=== PATIENT | female | born 1950 | race Caucasian/White ===

== ENCOUNTER 2019-01-16 13:03 | Outpatient (CLI) | payer MEDICARE, OTHER ==
--- NOTE | 2019-01-23 13:40 | Mammography Report ---
Reason: ANNUAL GYNECOLOGICAL EXAMINATION Procedure Date: 01/16/2019 Accession Number: [id number] / [id number] Procedure: MGN - Screening Mammo Dig Bilat CPT Code: FULL RESULT: EXAM: Screening Mammo Dig Bilat DATE: 01/16/2019 1:37 PM CLINICAL HISTORY: Routine screening. Benign left breast biopsy. TECHNIQUE: (B) - Bilateral CC and MLO views were obtained. COMPARISON: 11/23/2017, 03/30/2016, 03/04/2015, 02/20/2014. PARENCHYMAL PATTERN: (A) - The breasts demonstrate scattered fibroglandular densities bilaterally. FINDINGS: No significant interval change. There are no suspicious masses, calcifications, or areas of distortion. IMPRESSION: Negative examination. BI-RADS category 1. RECOMMENDATION: (ANNUAL) - Recommend routine annual screening mammography. BI-RADS CATEGORY: (1) - Negative. STANDARD QUALIFYING STATEMENTS: 1. This examination was not reviewed with the aid of Computer-Aided Detection (CAD). 2. A negative or benign imaging report should not preclude biopsy if clinically suspicious findings are present. 3. Dense breasts may obscure an underlying neoplasm. 4. This examination was reviewed without the aid of 3D breast imaging (tomosynthesis).
== END 2019-01-16 13:04 | disposition home or self-care (01) ==
LOC: DI.N 13:03
PROVIDERS: ATTEND Obstetrics & Gynecology
DX: Z12.31 Encounter for screening mammogram for malignant neoplasm of breast (principal)
CPT/HCPCS: 77067

== ENCOUNTER 2019-12-19 10:26 | Outpatient (CLI) | payer MEDICARE, OTHER | END 2019-12-19 10:27 | disposition short-term general hospital (02) | LOC: EMS 10:26 | PROVIDERS: ATTEND Surgery | DX: R53.1 Weakness (principal); R25.1 Tremor, unspecified | CPT/HCPCS: A0425; A0429 ==

== ENCOUNTER 2022-08-31 12:22 | Outpatient (CLI) | payer MEDICARE, OTHER ==
--- NOTE | 2022-09-01 11:31 | Mammography Report ---
BILATERAL DIGITAL SCREENING MAMMOGRAM 3D/2D: 08/31/2022 CLINICAL: Family history of breast cancer. Routine screening. Comparison is made to exams dated: 02/15/2020 mammogram, 01/16/2019 mammogram - [facility], 11/23/2017 mammogram, 03/30/2016 mammogram, 03/04/2015 mammogram, and 02/20/2014 mammogram. Both breasts are almost entirely fatty (category a/<25% glandular tissue). No significant masses, calcifications, or other findings are seen in either breast. There has been no significant interval change. IMPRESSION: NEGATIVE There is no mammographic evidence of malignancy. A 1 year screening mammogram is recommended. Based on the Tyrer Cuzick model (a risk assessment model) the patients lifetime risk is 5.3% and her 10 year risk is 3.6%. According to the ACR, ACS, and NCCN guidelines, an annual breast MRI exam minda g with mammogram is recommended if the patients lifetime risk is 20% or greater. This exam was interpreted at Station ID: [id number]. NOTE: For mammograms, a report in lay terms will be sent to the patient. Approximately 15% of breast malignancies will not be visualized mammographically. In the management of a palpable breast mass, a negative mammogram must not discourage biopsy of a clinically suspicious lesion. Electronically Signed By: Page [email or web address]/[email or web address]:08/31/2022 17:58:18 ACR BI-RADS Category 1: Negative 3341F PARENCHYMAL PATTERN: (F) - The breast(s) demonstrate(s) diffuse fatty replacement. BI-RADS CATEGORY: (1) - 1 RECOMMENDATION: (ANNUAL) - Recommend routine annual screening mammography. [id number] 1 year screening LATERALITY: (B)
== END 2022-08-31 12:23 | disposition home or self-care (01) ==
LOC: DI.N 12:22
PROVIDERS: ATTEND Nurse Practitioner
DX: Z12.31 Encounter for screening mammogram for malignant neoplasm of breast (principal); Z80.3 Family history of malignant neoplasm of breast

== ENCOUNTER 2022-12-29 09:58 | Outpatient (CLI) | payer MEDICARE, OTHER ==
--- NOTE | 2022-12-29 10:48 | DEXA Report ---
PROCEDURE: Dexa Spine and/or Hip INDICATIONS: POST MENOPAUSAL TECHNIQUE: Dual energy x-ray absorptiometry (DXA) was performed on a Shippo System. Regions measur ed are the AP Spine, femoral neck, and if needed forearm. COMPARISON: None. FINDINGS: Lumbar Spine: Postsurgical changes are seen from prior lumbar spinal fusion hardware likely extending from L3 throu gh L5. Bone Mineral Density of T12-L2 is 1.022 g/cm/cm,T score -1.2. Left Femoral Neck: Bone Mineral Density 0.827 g/cm/cm, T score -1.5. Left Hip: Bone Mineral Density 0.920 g/cm/cm,T score -0.7. (T score greater or equal to -1.0: NORMAL) (T score from -1.1 to -2.4: OSTEOPENIA) (T score less than or equal to -2.5 to: OSTEOPOROSIS) Impression: By WHO criteria, this patient has low bone density (osteopenia). Patients with diagnosis of osteoporosis or osteopenia should have regular bone mineral density assess ment. For those eligible for Medicare, routine testing is allowed once every 2 years. Testing frequ ency can be increased for patients who have rapidly progressing disease or for those who are receivin g medical therapy to restore bone mass. Reviewed by: Kit Arboleda MD on 12/29/2022 10:47 AM PDT Approved by: Kit Arboleda MD on 12/29/2022 10:47 AM PDT Station ID: [id number]
== END 2022-12-29 09:59 | disposition home or self-care (01) ==
LOC: DI 09:58
PROVIDERS: ATTEND Internal Medicine
DX: N95.8 Other specified menopausal and perimenopausal disorders (principal); M85.80 Other specified disorders of bone density and structure, unspecified site

== ENCOUNTER 2024-01-12 13:00 | Outpatient (CLI) | payer MEDICARE, OTHER ==
[2024-01-12 13:17] LABS: BASOPHILS # (AUTO) 0.1 10^3/uL (0.0-0.1); BASOPHILS % (AUTO) 0.8 %; EOSINOPHILS # (AUTO) 0.1 10^3/uL (0.0-0.7); EOSINOPHILS % (AUTO) 1.1 %; HCT - HEMATOCRIT 38.5 % (37.0-47.0); HGB - HEMOGLOBIN 12.2 g/dL (12.0-16.0); LYMPHOCYTES # (AUTO) 1.5 10^3/uL (1.5-3.5); LYMPHOCYTES % (AUTO) 17.2 %; MEAN CORPUSCULAR HGB CONC 31.7 g/dL (32.0-36.0); MEAN CORPUSCULAR VOLUME 88.3 fL (81.0-99.0); MEAN PLATELET VOLUME 10.4 fL (7.9-10.8); MONOCYTES # (AUTO) 0.6 10^3/uL (0.0-1.0); MONOCYTES % (AUTO) 6.6 %; NEUTROPHILS # (AUTO) 6.5 10^3/uL (1.5-6.6); NEUTROPHILS % (AUTO) 73.6 %; PLT - PLATELET COUNT 257 10^3/uL (130-450); RED BLOOD COUNT 4.36 10^6/uL (4.20-5.40); RED CELL DISTRIBUTION WIDTH 14.1 % (12.0-15.0); WHITE BLOOD COUNT 8.8 x10^3/uL (4.8-10.8)
[2024-01-12 13:32] LABS: ALBUMIN 4.1 g/dL (3.2-5.5); ALBUMIN/GLOBULIN RATIO 1.5 (1.0-2.2); ALKALINE PHOSPHATASE 97 IU/L (42-121); ALT ALANINE AMINOTRANSFERASE 16 IU/L (10-60); AST ASPARTATE AMINOTRANSFERASE 21 IU/L (10-42); BILIRUBIN,TOTAL 0.3 mg/dL (0.2-1.0); BUN - BLOOD UREA NITROGEN 21 mg/dL (6-20); CALCIUM 9.4 mg/dL (8.5-10.3); CARBON DIOXIDE - CO2 27 mmol/L (21-32); CHLORIDE 104 mmol/L (101-111); CHOL/HDL RATIO 3.6 (<4.4); CHOLESTEROL 267 mg/dL; CREATININE 0.6 mg/dL (0.6-1.3); GFR - MDRD 98 (>89); GLUCOSE 106 mg/dL (74-104); HDL CHOLESTEROL 75 mg/dL; LDL CHOLESTEROL,CALCULATED 162 mg/dL; LDL/HDL RATIO 2.2 (<4.4); POTASSIUM 4.2 mmol/L (3.5-4.5); SODIUM 137 mmol/L (135-145); TOTAL PROTEIN 6.8 g/dL (6.4-8.9); TRIGLYCERIDES 152 mg/dL (48-352); VLDL CHOLESTEROL 30 mg/dL
== END 2024-01-12 13:01 | disposition home or self-care (01) ==
LOC: LAB 13:00
PROVIDERS: ATTEND Family Medicine
DX: I25.10 Atherosclerotic heart disease of native coronary artery without angina pectoris (principal); E03.9 Hypothyroidism, unspecified; J45.909 Unspecified asthma, uncomplicated; F41.9 Anxiety disorder, unspecified; M79.7 Fibromyalgia
CPT/HCPCS: 36415; 80053; 80061; 83721; 84439; 84443; 84481; 85025

== ENCOUNTER 2025-03-24 10:57 | Observation (INO) ==
--- NOTE | 2025-03-24 11:14 | ED Physician Documentation ---
History of Present Illness Stated complaint Stated Complaint: SOA, CAN'T STAND, TIGHT STOMACH Chief complaint Chief Complaint: Neuro Meds/Allgy Home Medications Ambulatory Orders Medication Instructions Recorded Confirmed aspirin 81 mg tablet,delayed 81 mg PO QDAY 05/01/24 release (Adult Low Dose Aspirin) celecoxib 200 mg capsule mg PO BID 05/01/24 03/13/25 cetirizine 10 mg tablet (Zyrtec) 10 mg PO QDAY PRN 03/1703/13/25 albuterol sulfate 90 mcg/actuation 2 puff inhalation Q 6H PRN 05/21/24 03/13/25 aerosol inhaler (Proventil HFA) shortness of breath or wheezing #8.5 grams zaleplon 10 mg capsule 10 mg PO ONCE PRN sleep #90 caps 05/21/24 03/13/25 fluticasone propionate 220 See Rx Instructions .Route 07/31/24 03/13/25 mcg/actuation HFA aerosol inhaler .COMPLEX #36 grams rabeprazole 20 mg tablet,delayed 20 mg PO BID #180 tab s 09/02/24 03/13/25 release sulfamethoxazole 800 0.5 tab PO QDAY #90 tabs 03/13/25 mg-trimethoprim 160 mg tablet cranberry 500 mg capsule 500 mg PO .Daily I have refl ux 09/27/24 03/13/25 lysine 1,000 mg tablet 1,000 mg PO .Daily Mouth Sor es 09/27/24 03/13/25 levothyroxine 75 mcg tablet 75 mcg PO QDAY #90 tabs 03/13/25 liothyronine 5 mcg tablet 10 mcg (2 x 5 mcg) PO QDAY # 180 11/02/24 03/13/25 tabs estradiol 0.01% (0.1 mg/gram) See Rx Instructions .Rou te 01/15/25 03/13/25 vaginal cream .COMPLEX #42.5 grams pregabalin 50 mg capsule 150 mg (3 x 50 mg) PO QDAY # 270 01/19/25 03/13/25 caps midodrine 10 mg tablet 10 mg PO .qdaily #30 tabs 03/13/25 sertraline 50 mg tablet 150 mg (3 x 50 mg) PO QDAY # 270 03/16/25 tabs Allergies Allergies Allergy/AdvReac Type Severity Reaction Status Date / Time epinephrine Allergy Severe Respiratory Verified 01/08/25 15:30 nitrofurantoin (From Allergy Severe Respiratory Verified 01/08/25 15:30 Macrodantin) povidone-iodine (From Allergy Severe Rash Verified 01/08/25 15:30 Betadine) latex AdvReac Severe Rash Verified 01/08/25 15:30 Scales powder, Fennel, Allergy Severe Respiratory Uncoded 01/08/25 15:30 chamomile PFSH Active Problems All Active Problems (Updated 03/13/25 @ 17:05 by Cuate Ferrari MD) Hypotension, unspecified (Acute) GERD (gastroesophageal reflux disease) (Acute 01/09/19) Atherosclerosis of coronary artery of [place] heart (Acute 03/22/23) Abnormal Pap smear of cervix (Acute 01/09/19) Seizure disorder (Acute 01/09/19) Osteoarthritis (Acute 01/09/19) Neurologic disorder (Acute 01/09/19) Mechanical low back pain (Acute 03/22/23) Kidney disease (Acute 01/09/19) Hypothyroidism (Acute 01/09/19) Hearing loss, bilateral (Acute 03/22/23) Fibromyalgia (Acute 01/09/19) Fatigue (Acute 08/23/23) Depression (Acute 03/22/23) Asthma (Acute 01/09/19) Anxiety (Acute 01/09/19) Anemia (Acute 01/09/19) Allergic rhinitis (Acute 03/22/23) Medical History Medical History (Updated 03/13/25 @ 17:05 by Cuate Ferrari MD) Urinary tract infection, recurrent (03/22/23) Myocardial infarction (01/09/19) Family History Family History (Updated 10/03/24 @ 11:28 by Regla Jefferson LPN) Daughter Muscular dystrophy Rhabdomyosarcoma Endometriosis Ovarian cyst Fibroids Mother Breast cancer Cancer Arthritis Heart attack Colitis Degenerative joint disease Blood disease Sister Cancer Son Epilepsy Maternal grandfather Arthritis Maternal grandmother Arthritis Paternal grandfather Arthritis Paternal grandmother Arthritis Father Arthritis Heart attack Mental disorder Social History Social History Second hand tobacco smoke exposure: Yes Do you dip or chew tobacco?: No Do you vape?: No Patient requests smoking cessation consult: No Initiate information on smoking cessation: No Living arrangement: At home Marital Status: Living Condition: With spouse/s.o. 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 Service: No Are you following a diet prescribed by a doctor: No Are you following a special diet: Yes Special Diet Details: Low cholesterol POLST Patient has POLST: No Exam Exam Vital Signs: Vital Signs x48h Temp Pulse Resp BP Pulse Ox 03/24/25 11:05 36.3 C L 76 28 H 134/101 H 90 L Results Vitals Vitals: Vital Signs - 24 hr 03/24/25 11:05 Temperature 36.3 C L Temperature Source Temporal Artery Scan Pulse Rate 76 Respiratory Rate 28 H Blood Pressure 134/101 H O2 Saturation 90 L O2 Source Room air Pain Intensity 0 Oxygen O2 Source Room air Discharge Plan Discharge Prescriptions: No Action zaleplon 10 mg capsule 10 mg PO ONCE PRN (Reason: sleep) Qty: 90 0RF albuterol sulfate [Proventil HFA] 90 mcg/actuation HFA aerosol inhaler 2 puff inhalation Q6H PRN (Reason: shortness of breath or wheezing) Qty: 8.5 2RF fluticasone propionate 220 mcg/actuation HFA aerosol inhaler See Rx Instructions .ROUTE .COMPLEX Qty: 36 3RF Dose Instruction: USE 2 INHALATIONS TWICE A DAY Rx Instructions: USE 2 INHALATIONS TWICE A DAY rabeprazole 20 mg tablet,delayed release (DR/EC) 20 mg PO BID Qty: 180 3RF sulfamethoxazole-trimethoprim 800-160 mg tablet 0.5 tab PO QDAY Qty: 90 1RF liothyronine 5 mcg tablet 10 mcg PO QDAY Qty: 180 3RF estradiol 0.01 % (0.1 mg/gram) cream See Rx Instructions .ROUTE .COMPLEX Qty: 42.5 2RF Rx Instructions: apply small amount around urethra; three days a week pregabalin 50 mg capsule 150 mg PO QDAY Qty: 270 1RF sertraline 50 mg tablet 150 mg PO QDAY Qty: 270 3RF celecoxib 200 mg capsule PO BID aspirin [Adult Low Dose Aspirin] 81 mg tablet,delayed release (DR/EC) 81 mg PO QDAY cetirizine [Zyrtec] 10 mg tablet 10 mg PO QDAY PRN cranberry 500 mg capsule 500 mg PO .Daily lysine 1,000 mg tablet 1,000 mg PO .Daily levothyroxine 75 mcg tablet 75 mcg PO QDAY Qty: 90 3RF midodrine 10 mg tablet 10 mg PO .qdaily Qty: 30 3RF Rx Instructions: do not give last dose of day after 6PM or within 4 hrs of bedtime Print Language: Polish Stand Alone Forms: PCP List
--- NOTE | 2025-03-24 11:29 | ED Physician Documentation ---
History of Present Illness Stated complaint Stated Complaint: SOA, CAN'T STAND, TIGHT STOMACH Chief complaint Chief Complaint: Neuro History obtained from History obtained from: Patient History of Present Illness Timing: Prior to arrival Additonal information Additional information: Patient is a 74-year-old female presenting to the emergency department with concerns for feeling significantly fatigued and weak she felt so weak she could not get out of the car while going into [facility] this morning. Her physician conveniently works at the [facility] and evaluated patient and sent her to the ER as her heart rate was elevated. On arrival patient has diffuse movements of upper and lower extremities that could be described as twitching. 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 She is not on any medications for them. She describes feeling short of breath as well. No chest pain no incontinence no tongue biting no loss of consciousness describes patient being more fatigued this morning but did eat half an Armenian muffin and was able to get into the car to go to [facility]. Patient open noted on arrival at [facility] she just felt like she could not get up and go into the [facility]. She notes she drinks about 1 -2 glasses of wine. Meds/Allgy Home Medications Ambulatory Orders Medication Instructions Recorded Confirmed aspirin 81 mg tablet,delayed 81 mg PO QDAY 05/01/24 release (Adult Low Dose Aspirin) celecoxib 200 mg capsule mg PO BID 05/01/24 03/13/25 cetirizine 10 mg tablet (Zyrtec) 10 mg PO QDAY PRN 03/1703/13/25 albuterol sulfate 90 mcg/actuation 2 puff inhalation Q 6H PRN 05/21/24 03/13/25 aerosol inhaler (Proventil HFA) shortness of breath or wheezing #8.5 grams zaleplon 10 mg capsule 10 mg PO ONCE PRN sleep #90 caps 05/21/24 03/13/25 fluticasone propionate 220 See Rx Instructions .Route 07/31/24 03/13/25 mcg/actuation HFA aerosol inhaler .COMPLEX #36 grams rabeprazole 20 mg tablet,delayed 20 mg PO BID #180 tab s 09/02/24 03/13/25 release sulfamethoxazole 800 0.5 tab PO QDAY #90 tabs 03/13/25 mg-trimethoprim 160 mg tablet cranberry 500 mg capsule 500 mg PO .Daily I have refl ux 09/27/24 03/13/25 lysine 1,000 mg tablet 1,000 mg PO .Daily Mouth Sor es 09/27/24 03/13/25 levothyroxine 75 mcg tablet 75 mcg PO QDAY #90 tabs 03/13/25 liothyronine 5 mcg tablet 10 mcg (2 x 5 mcg) PO QDAY # 180 11/02/24 03/13/25 tabs estradiol 0.01% (0.1 mg/gram) See Rx Instructions .Rou te 01/15/25 03/13/25 vaginal cream .COMPLEX #42.5 grams pregabalin 50 mg capsule 150 mg (3 x 50 mg) PO QDAY # 270 01/19/25 03/13/25 caps midodrine 10 mg tablet 10 mg PO .qdaily #30 tabs 03/13/25 sertraline 50 mg tablet 150 mg (3 x 50 mg) PO QDAY # 270 03/16/25 tabs Allergies Allergies Allergy/AdvReac Type Severity Reaction Status Date / Time epinephrine Allergy Severe Respiratory Verified 03/24/25 11:20 nitrofurantoin (From Allergy Severe Respiratory Verified 03/24/25 11:20 Macrodantin) povidone-iodine (From Allergy Severe Rash Verified 03/24/25 11:20 Betadine) latex AdvReac Severe Rash Verified 03/24/25 11:20 Scales powder, Fennel, Allergy Severe Respiratory Uncoded 03/24/25 11:20 chamomile [facility] Active Problems All Active Problems (Updated 03/24/25 @ 21:32 by Geneva Morelos PA-C) Unable to ambulate (Acute) Foot spasms (Acute) Do not resuscitate (Acute) Lactic acidosis (Acute) Involuntary movements (Acute) Hypotension, unspecified (Acute) GERD (gastroesophageal reflux disease) (Acute 01/09/19) Atherosclerosis of coronary artery of [place] heart (Acute 03/22/23) Abnormal Pap smear of cervix (Acute 01/09/19) Seizure disorder (Acute 01/09/19) Osteoarthritis (Acute 01/09/19) Neurologic disorder (Acute 01/09/19) Mechanical low back pain (Acute 03/22/23) Kidney disease (Acute 01/09/19) Hypothyroidism (Acute 01/09/19) Hearing loss, bilateral (Acute 03/22/23) Fibromyalgia (Acute 01/09/19) Fatigue (Acute 08/23/23) Depression (Acute 03/22/23) Asthma (Acute 01/09/19) Anxiety (Acute 01/09/19) Anemia (Acute 01/09/19) Allergic rhinitis (Acute 03/22/23) Medical History Medical History (Updated 03/24/25 @ 21:32 by Geneva Morelos PA-C) Glomerulonephritis in the past due to reflux into right kidney from bladder Weakness of left lower extremity chronic from spine problems Polyneuropathy with hyperreflexia Congenital pes planus With gastrocnemius recession to transfer and lengthen Achilles tendon and form foot arch 1959, 1960. Then had transfer of big toe tendon to replace torn Achilles left foot 2007 Urinary tract infection, recurrent (03/22/23) on daily bactrim for this Myocardial infarction (01/09/19) Surgical History Surgical History (Updated 03/24/25 @ 17:43 by Emma Riddle MD) Status post right knee replacement Partial with Repicci prosthesis 08/2020 H/O breast biopsy 1979 H/O tubal ligation February 1978 S/P tonsillectomy 1954 H/O lysis of adhesions adhesions L bowel, colon rigid and treacherous H/O cervical spine surgery C2-3, November 2021 Family History Family History (Updated 10/03/24 @ 11:28 by Regla Jefferson LPN) Daughter Muscular dystrophy Rhabdomyosarcoma Endometriosis Ovarian cyst Fibroids Mother Breast cancer Cancer Arthritis Heart attack Colitis Degenerative joint disease Blood disease Sister Cancer Son Epilepsy Maternal grandfather Arthritis Maternal grandmother Arthritis Paternal grandfather Arthritis Paternal grandmother Arthritis Father Arthritis Heart attack Mental disorder Social History Social History (Updated 03/24/25 @ 17:50 by Emma Riddle MD) Smoking Status: Never smoker Second hand tobacco smoke exposure: Yes Do you dip or chew tobacco?: No Do you vape?: No Patient requests smoking cessation consult: No Initiate information on smoking cessation: No Living arrangement: At home Marital Status: Living Condition: With spouse/s.o. Support Person: Yes Relationship Notes: 50 years. From [place]. [place] and lived all over. [facility] since 2017. Living Situation Details: Live in their own home. Has a Durable Power of Air Technician for Health Care?: No DPOA on file?: No Has Health Care Directive?: No Physical Activity: Walking and Swimming Level: Assisted Home Mobility Equipment: Cane Physical - Functional Details: Still drives during the day. Uses a walker when the left leg is particularly weak. 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 Service: No Are you following a diet prescribed by a doctor: No Are you following a special diet: Yes Special Diet Details: Low cholesterol POLST Patient has POLST: No Exam Exam Vital Signs: Vital Signs x48h Pulse Resp BP Pulse Ox 03/24/25 15:52 62 18 162/53 H 98 03/24/25 15:07 63 18 163/82 H 95 03/24/25 15:07 66 18 163/82 H 98 03/24/25 14:52 65 18 173/46 H 94 03/24/25 14:37 60 18 173/85 H 93 03/24/25 14:22 62 18 179/70 H 99 03/24/25 14:22 61 18 179/70 H 99 03/24/25 14:07 63 18 169/83 H 96 03/24/25 13:52 63 18 185/62 H 100 03/24/25 13:37 66 18 176/73 H 100 03/24/25 13:37 67 18 176/73 H 99 03/24/25 13:30 68 18 113/90 93 Constitutional Patient does not appear in any significant distress she is answering questions ANO x 3 no acute distress but does have diffuse spasms to upper and lower extremities with a distal in the hands and feet. Does not appear to be chorea or tremors. Patient is alert but keeps her eyes closed on initial examination. HENMT normocephalic and head/scalp atraumatic Eyes PERRL, EOMs intact bilaterally and conjunctivae normal Neck/C-Spine visual inspection normal Lymph no lymphadenopathy noted Chest inspection of chest normal and palpation of chest normal Respiratory breath sounds equal bilaterally, normal respiratory effort and clear to auscultation bilaterally Cardiovascular normal heart rate noted, regular rhythm noted, no gallop and no rub Genitourinary no CVA tenderness Results Vitals Vitals: Vital Signs - 24 hr 03/24/25 11:05 03/24/25 11:19 03/24/25 11:31 Temperature 36.3 C L Temperature Source Temporal Artery Scan Pulse Rate 76 69 Respiratory Rate 28 H 21 Blood Pressure 134/101 H 156/102 H O2 Saturation 90 L 100 O2 Source Room air Room air Pain Intensity 0 0 03/24/25 11:31 03/24/25 11:47 03/24/25 12:18 Temperature Temperature Source Pulse Rate 70 68 63 Respiratory Rate 18 18 13 Blood Pressure 156/102 H 152/90 H 157/89 H O2 Saturation 99 98 99 O2 Source Room air Room air Pain Intensity 03/24/25 12:18 03/24/25 12:18 03/24/25 12:31 Temperature Temperature Source Pulse Rate 66 66 68 Respiratory Rate 18 18 22 Blood Pressure 157/89 H 157/89 H 183/76 H O2 Saturation 100 97 92 O2 Source Pain Intensity 03/24/25 12:47 03/24/25 12:47 03/24/25 12:47 Temperature Temperature Source Pulse Rate 64 64 66 Respiratory Rate 16 18 18 Blood Pressure 168/88 H 168/88 H 168/88 H O2 Saturation 100 99 93 O2 Source Pain Intensity 03/24/25 13:02 03/24/25 13:11 03/24/25 13:17 Temperature Temperature Source Pulse Rate 65 62 62 Respiratory Rate 18 20 18 Blood Pressure 175/69 H 171/68 H O2 Saturation 97 95 99 O2 Source Pain Intensity 03/24/25 13:17 03/24/25 13:30 03/24/25 13:37 Temperature Temperature Source Pulse Rate 68 68 67 Respiratory Rate 18 18 18 Blood Pressure 171/68 H 113/90 176/73 H O2 Saturation 93 93 99 O2 Source Pain Intensity 03/24/25 13:37 03/24/25 13:52 03/24/25 14:07 Temperature Temperature Source Pulse Rate 66 63 63 Respiratory Rate 18 18 18 Blood Pressure 176/73 H 185/62 H 169/83 H O2 Saturation 100 100 96 O2 Source Pain Intensity 03/24/25 14:22 03/24/25 14:22 03/24/25 14:37 Temperature Temperature Source Pulse Rate 61 62 60 Respiratory Rate 18 18 18 Blood Pressure 179/70 H 179/70 H 173/85 H O2 Saturation 99 99 93 O2 Source Pain Intensity 03/24/25 14:52 03/24/25 15:07 03/24/25 15:07 Temperature Temperature Source Pulse Rate 65 66 63 Respiratory Rate 18 18 18 Blood Pressure 173/46 H 163/82 H 163/82 H O2 Saturation 94 98 95 O2 Source Pain Intensity 03/24/25 15:52 Temperature Temperature Source Pulse Rate 62 Respiratory Rate 18 Blood Pressure 162/53 H O2 Saturation 98 O2 Source Pain Intensity Oxygen O2 Source Room air Labs Labs: Laboratory Tests 03/24/25 03/24/25 03/24/25 11:30 11:41 12:18 WBC 9.1 RBC 4.47 Hgb 12.0 Hct 37.8 MCV 84.6 MCH 26.8 L MCHC 31.7 L RDW 14.6 Plt Count 259 MPV 10.9 H Neut # (Auto) 7.1 H Lymph # (Auto) 1.2 L Clark # (Auto) 0.6 Eos # (Auto) 0.0 Baso # (Auto) 0.1 Absolute Nucleated RBC 0.00 Nucleated RBC % 0.0 Sodium 137 Potassium 3.7 Chloride 105 Carbon Dioxide 21 Anion Gap 11.0 BUN 16 Creatinine 0.6 Estimated GFR (MDRD) 98 Glucose 118 H Lactic Acid 3.5 H* Calcium 9.2 Magnesium 1.8 Total Bilirubin 0.4 AST 17 ALT 13 Alkaline Phosphatase 80 Total Creatine Kinase 64 Troponin I High Sens 3.6 B-Natriuretic Peptide 16 Total Protein 7.2 Albumin 4.4 Globulin 2.8 Albumin/Globulin Ratio 1.6 Urine Color YELLOW Urine Clarity HAZY Urine pH 8.0 H Ur Specific [place] 1.010 Urine Protein NEGATIVE Urine Glucose (UA) NEGATIVE Urine Ketones NEGATIVE Urine Occult Blood MODERATE H Urine Nitrite NEGATIVE Urine Bilirubin NEGATIVE Urine Urobilinogen 0.2 (NORMAL) Ur Leukocyte Esterase NEGATIVE Urine RBC 0-5 Urine WBC 0-3 Ur Squamous Epith Cells MOD Squamous H Amorphous Sediment Marked Urine Bacteria Many H Ur Microscopic Review INDICATED Urine Culture Comments NOT INDICATED Nasal Adenovirus (PCR) NOT DETECTED Nasal B. parapertussis DNA (PCR) NOT DETECTED Nasal Coronavir 229E PCR NOT DETECTED Nasal Coronavir HKU1 PCR NOT DETECTED Nasal Coronavir NL63 PCR NOT DETECTED Nasal Coronavir OC43 PCR NOT DETECTED Nasal Enterovir/Rhinovir PCR NOT DETECTED Nasal Influenza B PCR NOT DETECTED Nasal Influenza A PCR NOT DETECTED Nasal Parainfluen 1 PCR NOT DETECTED Nasal Parainfluen 2 PCR NOT DETECTED Nasal Parainfluen 3 PCR NOT DETECTED Nasal Parainfluen 4 PCR NOT DETECTED Nasal RSV (PCR) NOT DETECTED Nasal B.pertussis DNA PCR NOT DETECTED Nasal C.pneumoniae (PCR) NOT DETECTED Hugh Human Metapneumo PCR NOT DETECTED Nasal M.pneumoniae (PCR) NOT DETECTED Nasal SARS-CoV-2 (PCR) NOT DETECTED Urine Opiates Screen NEGATIVE Ur Buprenorphine Scrn NEGATIVE Ur Oxycodone Screen NEGATIVE Urine Methadone Screen NEGATIVE Urine Fentanyl Screen Negative Ur Barbiturates Screen NEGATIVE Ur Tricyclics Screen NEGATIVE Ur Phencyclidine Scrn NEGATIVE Ur Amphetamine Screen NEGATIVE U Methamphetamines Scrn NEGATIVE U Benzodiazepines Scrn POSITIVE H Urine Cocaine Screen NEGATIVE U Cannabinoids Screen NEGATIVE Ur Drug Screen Comment CUTOFF CONC BELOW: Ethyl Alcohol < 10.0 PD Medical Decision Making ED course Complexity details: reviewed old records and reviewed results ED course: Patient is a 74-year-old female presenting to the emergency department with diffuse spasming mainly in upper and lower extremities she was about to going to [facility] when she was unable to get out of the car due to difficulty walking. She notes that she never had the symptoms before but reports a history of grand mal seizures in the past. She denies any tongue biting incontinence or seizure-like activity this was confirmed by her . He notes she is a little bit sore this morning but had no symptoms similar. Patient did report taking her morning medications including aspirin. She had no fevers no nausea no vomiting. Labs here in the ED are reassuring she is no findings of leukocytosis CMP is unremarkable UA is negative EKG has some motion artifact but is showing normal sinus rhythm lipase well within normal limits she has a slight elevation in her lactic acid but she is started on IV fluids for this here in the ED could be secondary to diffuse spasms. CT head shows no acute intracranial findings at this time.Respiratory swab is negative UA positive for benzos and alcohol level is negative CT angio head and neck ordered with code stroke as patient Began to develop significant difficulty speaking with mumbling and having persistent shaking to her feet. 1347: Reviewed case with on-call teleneurologist Dr. Menendze who notes it is difficult to determine last known well time from patient as has been reported her symptoms have been going on since she has been here in the ED but this was not appreciated on my physical exam during her initial arrival additionally patient has had inconsistent findings on her physical exam and the fact she could not transfer herself from wheelchair to bed when she first came in but per my tech she was able to transfer herself from wheelchair to toilet and back without difficulty ( able to bear weight) by herself. 1500: Reviwed reassuring work up [facility] Dr. De Paz notes MRI outpatient can be ordered but patient is having difficulty walking. I have a patient she continues to have spasms she feels too weak to go home and cannot ambulate side. does not feel safe to bring patient home and patient would like to stay here in I reviewed case with hospitalist and she is agreeable with admission with Dr. Riddle Discharge Plan Discharge Patient Disposition: 67 [facility] DC/Xfer Condition: Good Clinical Impression: Foot spasms, Unable to ambulate Interventions: ED Admission Assessment Last Done: 03/24/25 16:48 Vitals documented within 30 minutes of discharge?: Yes
--- OUTSIDE RECORDS SUMMARY | 2025-03-24 11:31 | EXTERNAL MEDICAL SUMMARY RPT | Continuity of Care Document ---
Author Organization [facility] Address [address] [place] [id number] Phone Problems date description facility 2025-01-08 14:51 Dysuria [facility] 2025-01-08 14:52 Dysuria [facility] 2025-01-08 15:24 Dysuria [facility] 2025-01-08 15:30 Dysuria [facility] 2025-01-08 15:33 Dysuria [facility] 2025-01-08 16:15 Dysuria [facility] 2025-01-08 19:13 Dysuria [facility] 2025-01-09 08:14 Dysuria [facility] 2025-03-14 00:01 Anemia, unspecified [facility] 2025-03-14 00:01 Hypothyroidism, unspecified [facility] 2025-03-14 00:01 Depression, unspecified [facility] 2025-03-14 00:01 Hypotension, unspecified [facility] 2025-03-14 00:01 Unspecified asthma, uncomplicat ed [facility] [employer] 2025-03-14 00:01 Gastro-esophageal reflux diseas e without esophagitis [facility] [employer] 2025-03-14 00:01 Unspecified osteoarthritis, uns pecified site [facility] 2025-03-14 00:01 Disorder of kidney and ureter, unspecified [facility] 2025-03-14 00:01 Other fatigue [employer] Results/Labs test date facility value unit notes Result panel 1 CUL, URINE 2025-01-08 15:30 [facility] CXPCULTUR E IN PROGRESS. RESULTS TO FOLLOW. (missing) (missing) CUL, URINE 2025-01-08 15:30 [facility] NGNo growth (miss ing) (missing) Social History date description facility
--- NOTE | 2025-03-24 11:44 | XRAY Report ---
PROCEDURE: XR Chest 1V INDICATIONS: sob TECHNIQUE: One view of the chest was acquired. COMPARISON: 12/03/2022. FINDINGS: Surgical changes and devices: None. Lungs and pleura: No pleural effusions or pneumothorax. No consolidation. Mediastinum: Mediastinal contours appear normal. Heart size is normal. Bones and chest wall: No suspicious bony lesions. Overlying soft tissues appear unremarkable. IMPRESSION: No acute cardiopulmonary process. Reviewed by: Suzette Alvarado MD on 03/24/2025 10:43 AM JOANN Approved by: Suzette Alvarado MD on 03/24/2025 10:43 AM JOANN Station ID: [id number]
[2025-03-24 11:45] LABS: HCT - HEMATOCRIT 37.8 % (37.0-47.0); HGB - HEMOGLOBIN 12.0 g/dL (12.0-16.0); MEAN PLATELET VOLUME 10.9 fL (7.9-10.8); NRBC ABSOLUTE COUNT (AUTO) 0.00 x10^3/uL; NUCLEATED RED BLOOD CELLS AUTO 0.0 /100WBC; PLT - PLATELET COUNT 259 10^3/uL (130-450); RED CELL DISTRIBUTION WIDTH 14.6 % (12.0-15.0)
[2025-03-24 12:01] LABS: ALT ALANINE AMINOTRANSFERASE 13 IU/L (10-60); AST ASPARTATE AMINOTRANSFERASE 17 IU/L (10-42); BUN - BLOOD UREA NITROGEN 16 mg/dL (6-20); CARBON DIOXIDE - CO2 21 mmol/L (21-32); CREATININE 0.6 mg/dL (0.6-1.3); ETOH - ETHANOL < 10.0 mg/dL; GFR - MDRD 98 (>89)
[2025-03-24] MEDS: SODIUM CHLORIDE 0.9% 1,000 ML IV STA (12:21)
[2025-03-24 12:35] LABS: OCCULT BLOOD,URINE MODERATE (NEGATIVE)
[2025-03-24 12:36] LABS: GLUCOSE, URINE (UA) NEGATIVE (NEGATIVE); KETONES,URINE (UA) NEGATIVE (NEGATIVE)
[2025-03-24 12:40] LABS: AMORPHOUS SEDIMENT,UR Marked /LPF; AMPHETAMINE SCREEN,URINE NEGATIVE (NEGATIVE); BARBITURATE SCREEN,UR NEGATIVE (NEGATIVE); BUPRENORPHINE SCREEN, URINE NEGATIVE (NEGATIVE); COCAINE SCREEN URINE NEGATIVE (NEGATIVE); METHADONE SCREEN, URINE NEGATIVE (NEGATIVE); METHAMPHETAMINES SCREEN, URINE NEGATIVE (NEGATIVE); OPIATE SCREEN, URINE NEGATIVE (NEGATIVE); SQUAMOUS EPITHELIAL CELL,UR MOD Squamous (<= Few); THC CANNABINOID SCREEN, URINE NEGATIVE (NEGATIVE)
[2025-03-24 12:41] LABS: BENZODIAZEPINES SCREEN, URINE POSITIVE (NEGATIVE)
[2025-03-24 12:43] LABS: B. PARAPERTUSSIS- RESP PCR PAN NOT DETECTED; B. PERTUSSIS- RESP PCR PANEL NOT DETECTED; C. PNEUMONIAE- RESP PCR PANEL NOT DETECTED; CORONAVIRUS 229E-RESP PCR NOT DETECTED; CORONAVIRUS HKU1-RESP PCR NOT DETECTED; CORONAVIRUS NL63-RESP PCR NOT DETECTED; CORONAVIRUS OC43-RESP PCR NOT DETECTED; HUMAN METAPNEUMOVIRUS NOT DETECTED; INFLUENZA A- RESP PCR PANEL NOT DETECTED; INFLUENZA B - RESP PCR PANEL NOT DETECTED; M. PNEUMONIAE- RESP PCR PANEL NOT DETECTED; PARAINFLUENZA VIRUS 1 NOT DETECTED; PARAINFLUENZA VIRUS 2 NOT DETECTED; PARAINFLUENZA VIRUS 4 NOT DETECTED; RHINOVIRUS/ENTEROVIRUS NOT DETECTED; RSV- RESP PCR PANEL NOT DETECTED; SARS-CoV-2 -RESP PCR PANEL NOT DETECTED
--- NOTE | 2025-03-24 12:49 | CT Report ---
PROCEDURE: CT Head WO INDICATIONS: tremors, fatigue, ams TECHNIQUE: CT of the head was performed, without intravenous contrast. Reformats: Coronal and sagittal. For radiation dose reduction, the following was used: automated exposure control, adjustment of mA and/or kV according to patient size. COMPARISON: None. FINDINGS: Image quality: Diagnostic. CSF spaces: Basal cisterns are patent. No extra-axial fluid collections. Ventricles are normal in size and shape. Brain: No midline shift. No intracranial mass effect or hemorrhage. [place]- white matter interface is normal. There is mild global atrophy with compensatory enlargement of the CSF spaces. Patchy periventricular and subcortical white matter hypoattenuation is likely the sequela of microangiopathy. Skull and face: Calvarium and visualized facial bones are intact, without suspicious lesions. Sinuses: Visualized sinuses and mastoids are clear. IMPRESSION: No acute intracranial pathology. Reviewed by: Suzette Alvarado MD on 03/24/2025 11:47 AM JOANN Approved by: Suzette Alvarado MD on 03/24/2025 11:47 AM JOANN Station ID: [id number]
--- NOTE | 2025-03-24 14:31 | CT Report ---
PROCEDURE: CT Angio Head/Neck INDICATIONS: aphasia CONTRAST: omni 300 100mL TECHNIQUE: After the administration of intravenous contrast, images werenacquired from the aortic arch through the [place]. 3-dimensional mjekhlc-ycsiufgjq-[id number] (MIP) and volume rendering reformats were acquired of the central intracranial vasculature and neck separately. COMPARISON: None. FINDINGS: Image quality: Diagnostic. Cerebral CT Angiogram: Internal carotid arteries: No acute findings. Intracranial ICA are patent with no significant stenosis. No occlusion. No aneurysm. Anterior cerebral arteries: Unremarkable. No significant stenosis. No occlusion. No aneurysm. Middle cerebral arteries: Unremarkable. No significant stenosis. No occlusion. No aneurysm. Posterior cerebral arteries: Unremarkable. No significant stenosis. No occlusion. No aneurysm. Basilar artery: Unremarkable. No significant stenosis. No occlusion. No aneurysm. Vertebral arteries: Unremarkable as visualized. Dural venous sinuses: Unremarkable given phase of enhancement. Other: Arterial phase appearance of the brain parenchyma is unremarkable. Neck CT Angiogram: Internal carotid arteries: Unremarkable. No significant stenosis. No dissection or occlusion. Common carotid arteries: Atherosclerotic calcification is present in the carotid bulbs without hemodynamically significant stenosis.. No dissection or occlusion. External carotid arteries: Unremarkable. No occlusion. Vertebral arteries: Unremarkable. No significant stenosis. No dissection or occlusion. Aortic Arch and Mediastinum: Partially visualized aortic arch unremarkable without evidence of aneurysm. Origins of the great vessels unremarkable. Other: Arterial phase soft tissues of the neck and chest are unremarkable. IMPRESSION: No hemodynamically significant lesion of the arteries of the head and neck. The estimate of stenosis included in the report of the imaging study was calculated using the NASCET method Reviewed by: Suzette Alvarado MD on 03/24/2025 1:30 PM AKDT Approved by: Suzette Alvarado MD on 03/24/2025 1:30 PM AKDT Station ID: [id number]
--- NOTE | 2025-03-24 16:28 | HISTORY & PHYSICAL EXAMINATION ---
Chief Complaint Chief Complaint Chief Complaint: Uncontrollable spasms History of Present Illness Admitted From Admitted From:: [facility] via ambulance History Obtained From Records Reviewed: [facility] History obtained from: ER provider History of Present Illness HPI Comment/Other: She is a lady that has been evaluated by [facility] neurology in June 2024 for migraines, foot drop, and a history of seizures. She has a history and family history of childhood epilepsy and her symptoms resolved by the age of 13. She has had no true seizure activity since the age of 21. Her children also have childhood epilepsy and their symptoms also resolved by the age of 12. Her baseline tremors do interrupt her activities of daily living but she manages. Sometimes her tremors make her speech difficult, make her lightheaded, and she will have numbness. But she has not had a witnessed tonic- clonic seizure nor falls because of seizure. 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 Other than referral to PT, the neurology plan was to monitor her symptoms and adjust her care needs as needed but there is no change made to her medications. There is no history of an EEG, or history of ongoing seizures. She also carries a diagnosis of possible fibromyalgia dating to 2018. 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 She has been on Lyrica since 2008 along with Lexapro but changed to Zoloft in 2010. She also has cervical stenosis with multilevel degenerative disc, facet and uncovertebral joint changes. She has been evaluated by rheumatology as recently as August 2024. At that time she was not interested in altering her doses of Lyrica or increasing her dose of Lyrica. She described episodes of paroxysmal dyskinesia to the meat service team member.She is followed by Dr. Genao, primary care provider, and he notes that she was fatigued and seems more depressed with her last visit March 13. Medication change was discussed with regards to duloxetine. She also tells me that she just saw neurology again about a week ago. And there was no new medication change and there was "nothing to do" except to be seen again in another year. While on her way to [facility] today, she became short of breath and became very weak unable to walk because of uncontrollable twitches of her arms and legs and facial muscles. She felt like her heart was racing. She had been able to get to [facility] but could not get out of the car because of this feeling. Her primary care provider goes to the same [facility] and evaluated her and sent her to the emergency room. She tells me that he felt that her blood pressure was too high.Which is the opposite of what she saw him for March 13. At that visit her blood pressure was too low and he started her on midodrine. When she came to the ER, she had involuntary movements of the upper and lower extremities. She continued to complain of shortness of breath. There is no antecedent fever, chills. Rigors. She is not hallucinating. She is speaking while describing all of this and having the involuntary movements. Temperature was 36.3. Heart rate 76. Respirations 28 with anxiety. Blood pressure 134/101 and she was 90% saturated on room air. She was oriented to person, place, time. Throughout her evaluation had diffuse spasms to the upper and lower extremities all the way down to her hands and feet. This was not a tremor and it was not chorea. Lungs were clear. Regular rate and rhythm. Abdomen benign. ER provider also noted that the involuntary movements would du when the patient was not in direct observation. But once the provider walked in the room the involuntary movements would start. Sodium was 137, potassium 3.7, BUN 16, creatinine 0.6. Random glucose 116. Lactic acid elevated at 3.5. Which then led to a search for infection but UA was negative. White cell count was normal at 9.1. Hemoglobin was normal. Toxicology report was positive for benzodiazepines but negative for all else. She was evaluated for stroke and there is no acute intracranial pathology on CT of the head. Angiography of the head and neck did not have any signal nevic and lesions of the arteries or neck. And chest x-ray did not have acute cardiopulmonary process. Because of the continued involuntary movements, and the lactic acidosis the ER provider is understandably concerned about an infection we may be missing, a drug reaction we may be missing, or possible type of atypical seizures. I asked her what telestroke thought, she says they had nothing to offer. She just was not having a stroke. The patient denies loss of consciousness with any of this. She was aware of all of this happening. No new medications such as Sudafed or guaifenesin or [id number] antihistamine. No new medications at all. Denies blurred vision. Change in vision. No bowel or bladder incontinence with this. Right now she just hurts all over. Shortness of breath occurred in the car on the way there but she is not short of breath right now. She denies chest pain, palpitations right now. Abdomen does not have any pain, and she is hungry. Recently she has just been exhausted. She still gardens, volunteers, and is able to feed and dress herself. But she now finds herself slowing down so much that 1 chore will take her all day at the house. So she just takes it day by day. Mild memory loss today. She is just finding it difficult to have a complete conversation because she forgets words or forgets events. No headache. Meds/Allgy Home Medications Ambulatory Orders Medication Instructions Recorded Confirmed aspirin 81 mg tablet,delayed 81 mg PO QDAY 05/01/24 release (Adult Low Dose Aspirin) celecoxib 200 mg capsule mg PO BID 05/01/24 03/13/25 cetirizine 10 mg tablet (Zyrtec) 10 mg PO QDAY PRN 03/1703/13/25 albuterol sulfate 90 mcg/actuation 2 puff inhalation Q 6H PRN 05/21/24 03/13/25 aerosol inhaler (Proventil HFA) shortness of breath or wheezing #8.5 grams zaleplon 10 mg capsule 10 mg PO ONCE PRN sleep #90 caps 05/21/24 03/13/25 fluticasone propionate 220 See Rx Instructions .Route 07/31/24 03/13/25 mcg/actuation HFA aerosol inhaler .COMPLEX #36 grams rabeprazole 20 mg tablet,delayed 20 mg PO BID #180 tab s 09/02/24 03/13/25 release sulfamethoxazole 800 0.5 tab PO QDAY #90 tabs 03/13/25 mg-trimethoprim 160 mg tablet cranberry 500 mg capsule 500 mg PO .Daily I have refl ux 09/27/24 03/13/25 lysine 1,000 mg tablet 1,000 mg PO .Daily Mouth Sor es 09/27/24 03/13/25 levothyroxine 75 mcg tablet 75 mcg PO QDAY #90 tabs 03/13/25 liothyronine 5 mcg tablet 10 mcg (2 x 5 mcg) PO QDAY # 180 11/02/24 03/13/25 tabs estradiol 0.01% (0.1 mg/gram) See Rx Instructions .Rou te 01/15/25 03/13/25 vaginal cream .COMPLEX #42.5 grams pregabalin 50 mg capsule 150 mg (3 x 50 mg) PO QDAY # 270 01/19/25 03/13/25 caps midodrine 10 mg tablet 10 mg PO .qdaily #30 tabs 03/13/25 sertraline 50 mg tablet 150 mg (3 x 50 mg) PO QDAY # 270 03/16/25 tabs Allergies Allergies Allergy/AdvReac Type Severity Reaction Status Date / Time epinephrine Allergy Severe Respiratory Verified 03/24/25 11:20 nitrofurantoin (From Allergy Severe Respiratory Verified 03/24/25 11:20 Macrodantin) povidone-iodine (From Allergy Severe Rash Verified 03/24/25 11:20 Betadine) latex AdvReac Severe Rash Verified 03/24/25 11:20 Scales powder, Fennel, Allergy Severe Respiratory Uncoded 03/24/25 11:20 chamomile PFSH Active Problems All Active Problems (Updated 03/24/25 @ 18:14 by Emma Riddle MD) Do not resuscitate (Acute) Lactic acidosis (Acute) Involuntary movements (Acute) Hypotension, unspecified (Acute) GERD (gastroesophageal reflux disease) (Acute 01/09/19) Atherosclerosis of coronary artery of [place] heart (Acute 03/22/23) Abnormal Pap smear of cervix (Acute 01/09/19) Seizure disorder (Acute 01/09/19) Osteoarthritis (Acute 01/09/19) Neurologic disorder (Acute 01/09/19) Mechanical low back pain (Acute 03/22/23) Kidney disease (Acute 01/09/19) Hypothyroidism (Acute 01/09/19) Hearing loss, bilateral (Acute 03/22/23) Fibromyalgia (Acute 01/09/19) Fatigue (Acute 08/23/23) Depression (Acute 03/22/23) Asthma (Acute 01/09/19) Anxiety (Acute 01/09/19) Anemia (Acute 01/09/19) Allergic rhinitis (Acute 03/22/23) Medical History Medical History (Updated 03/24/25 @ 18:14 by Emma Riddle MD) Glomerulonephritis in the past due to reflux into right kidney from bladder Weakness of left lower extremity chronic from spine problems Polyneuropathy with hyperreflexia Congenital pes planus With gastrocnemius recession to transfer and lengthen Achilles tendon and form foot arch 1959, 1960. Then had transfer of big toe tendon to replace torn Achilles left foot 2007 Urinary tract infection, recurrent (03/22/23) on daily bactrim for this Myocardial infarction (01/09/19) Surgical History Surgical History (Updated 03/24/25 @ 17:43 by Emma Riddle MD) Status post right knee replacement Partial with Repicci prosthesis 08/2020 H/O breast biopsy 1979 H/O tubal ligation February 1978 S/P tonsillectomy 1954 H/O lysis of adhesions adhesions L bowel, colon rigid and treacherous H/O cervical spine surgery C2-3, November 2021 Family History Family History (Updated 10/03/24 @ 11:28 by Regla Jefferson LPN) Daughter Muscular dystrophy Rhabdomyosarcoma Endometriosis Ovarian cyst Fibroids Mother Breast cancer Cancer Arthritis Heart attack Colitis Degenerative joint disease Blood disease Sister Cancer Son Epilepsy Maternal grandfather Arthritis Maternal grandmother Arthritis Paternal grandfather Arthritis Paternal grandmother Arthritis Father Arthritis Heart attack Mental disorder Social History Social History (Updated 03/24/25 @ 17:50 by Emma Riddle MD) Smoking Status: Never smoker Second hand tobacco smoke exposure: Yes Do you dip or chew tobacco?: No Do you vape?: No Patient requests smoking cessation consult: No Initiate information on smoking cessation: No Living arrangement: At home Marital Status: Living Condition: With spouse/s.o. Support Person: Yes Relationship Notes: 50 years. From [place]. [place] and lived all over. [facility] since 2018. Living Situation Details: Live in their own home. Has a Durable Power of Cushion Padder for Health Care?: No DPOA on file?: No Has Health Care Directive?: No Physical Activity: Walking and Swimming Level: Assisted Physical - Functional Details: Still drives during the day. Uses a walker when the left leg is particularly weak. 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 Service: No Are you following a diet prescribed by a doctor: No Are you following a special diet: Yes Special Diet Details: Low cholesterol POLST Patient has POLST: No POLST Questions POLST CPR Status: Attempt Resuscitation (CPR) POLST Level (Attempt Resuscitation) Level of Medical Intervention: Full Treatment Prior Level of Functionality: Drives only during the day because of macular degeneration. Cleans house but takes 1 sure at a time because of exhaustion. 1 day laundry, 1 day sleeping floor, 1 day changing sheets on bed, etc. Still gardens and feeds and dress her self. Uses a walker when she feels like her left leg is getting weak. Exam Exam Vital Signs: Vital Signs x48h Temp Pulse Resp BP Pulse Ox 03/24/25 15:52 62 18 162/53 H 98 03/24/25 15:07 63 18 163/82 H 95 03/24/25 15:07 66 18 163/82 H 98 03/24/25 14:52 65 18 173/46 H 94 03/24/25 14:37 60 18 173/85 H 93 03/24/25 14:22 62 18 179/70 H 99 03/24/25 14:22 61 18 179/70 H 99 03/24/25 14:07 63 18 169/83 H 96 03/24/25 13:52 63 18 185/62 H 100 03/24/25 13:37 66 18 176/73 H 100 03/24/25 13:37 67 18 176/73 H 99 03/24/25 13:30 68 18 113/90 93 03/24/25 13:17 68 18 171/68 H 93 03/24/25 13:17 62 18 171/68 H 99 03/24/25 13:11 62 20 175/69 H 95 03/24/25 13:02 65 18 97 03/24/25 12:47 66 18 168/88 H 93 03/24/25 12:47 64 18 168/88 H 99 03/24/25 12:47 64 16 168/88 H 100 03/24/25 12:31 68 22 183/76 H 92 03/24/25 12:18 66 18 157/89 H 97 03/24/25 12:18 66 18 157/89 H 100 03/24/25 12:18 63 13 157/89 H 99 03/24/25 11:47 68 18 152/90 H 98 03/24/25 11:31 70 18 156/102 H 99 03/24/25 11:31 69 21 156/102 H 100 03/24/25 11:05 36.3 C L 76 28 H 134/101 H 90 L Alert and oriented elderly female, very cold in the room and lots of blankets on her but currently no involuntary movement, no rigors no tremors. Nurse stated that during her intake there was a lot of involuntary movement but that seems to resolve when I walked in the room. Constitutional normal general appearance and no apparent distress HENMT normocephalic, head/scalp atraumatic and hearing grossly normal bilaterally Eyes PERRL and EOMs intact bilaterally Neck/C-Spine trachea midline, supple and no carotid bruits Chest inspection of chest normal Respiratory breath sounds equal bilaterally, normal respiratory effort, clear to auscultation bilaterally, no wheezes, no rales and no retractions Cardiovascular normal heart rate noted, regular rhythm noted, no gallop and no rub Gastrointestinal abdomen soft to palpation, nontender to palpation and nontender to percussion Genitourinary no CVA tenderness Back/Pelvis spine normal to inspection Extremities normal to inspection, normal to palpation, no tenderness and full ROM Neurology superintendent [place] II-XII intact (Follows my cranial nerve exam and complies with my request and does well), no movement abnormality noted, no focal motor deficit noted and no sensory deficits noted Psychiatry mental status grossly normal Skin skin color normal Conclusion/Plan Problem List (1) Involuntary movements: Plan: This ephraim lady is on medications that can give you serotonin syndrome. But she has been on them for years and there is been no recent change. There can be sedation and RECEIVABLE EXECUTIVE depression with Sonata and Lyrica but that would be manifested as drowsiness, dizziness and confusion and difficulty concentrating. They contribute to risk of falls but does not her history. Serotonin syndrome would be associated with agitation, hallucinations, tachycardia, and fever. She does not have those. SSRIs can cause hyponatremia and neurological changes but she does not have that. Interactions between Lyrica and sertraline can occur. It can lower the seizure threshold and she does have a history of seizures. But this ephraim woman was awake and alert throughout her involuntary movements. There was no loss of consciousness, no bowel or bladder incontinence. She is convinced she has had a seizure and I explained that this probably not likely since she was completely aware, alert, unable to feel what was going on. Was also able to speak to people while it was going on.. There is no interaction of midodrine with sertraline, or Bactrim, or pregabalin or Sonata. I did explain to her that sometimes a panic attack in someone has anxiety can manifest as this. But it is difficult to say. All other organic causes should be ruled out before I would conclude a panic attack. There are also conditions like multiple system atrophy or autonomic dysreflexia they can cause a range of blood pressure issues including hypotension and hypertension, as well as involuntary movements. She would need to be evaluated by neurology for that. Plan: Observation status IV fluids for the lactic acidosis Monitor overnight for signs and symptoms of infection or true seizure Her usual home medications have been resumed except for the vitamin supplements. Since she just saw her neurologist, I asked her if she would like me to send a copy of this history and physical to Dr. Rudd. She said that would be great. I will send a copy tomorrow. (2) Lactic acidosis: Plan: At this time urinalysis has contamination with squamous cells. She does not describe urgency frequency dysuria. There is no fever or chills. Chest x-ray is negative for pneumonia. She does not have metformin on board. In assessment, I am not finding any infection or medications that would give her lactic acidosis. However she was having significant involuntary movements. That can cause lactic acidosis much like someone with muscle exertion or fighting against restraints would develop lactic acidosis. I will check a CPK. Overnight monitor her for signs and symptoms of infection. And I will give IV fluids at 100 cc an hour. (3) Hypothyroidism: Plan: And chronic pain, and chronic UTIs, and "low blood pressure". At this time I told her I am going to resume her aspirin, fluticasone with budesonide, albuterol via nebulizer, levothyroxine, liothyronine, pre-Tom, Protonix for her Aciphex, and sertraline. I would hold off on her Sonata, vitamins, cranberry, sertraline.I am also not going to give her midodrine since her blood pressure is on the high side. (4) Do not resuscitate: Plan: She still wants everything done with regards to surgeries, transfusions. She still feels like she has a lot of things to do in her life and she gives me an example [facility]. However, if she does lose a pulse in her pressure and she is no longer alive, she does not want to be resuscitated. No CPR no intubation. Lab Results Lab results reviewed: Yes 03/24/25 11:30 03/24/25 11:30 Core Measures Anticipated LOS I expect patient to be DC'd or transferred within 96 hours.: Yes DVT/VTE - Prophylaxis VTE/DVT Prophylaxis med ordered at admit?: Yes
[2025-03-24] MEDS ORDERED: SODIUM CHLORIDE FLUSH 0.9% 10 ML SYRINGE IVP PRN (16:47)
[2025-03-24] MEDS ORDERED: ONDANSETRON 4 MG/2 ML VIAL IVP PRN (16:47)
[2025-03-24] MEDS ORDERED: ACETAMINOPHEN 325 MG TABLET PO PRN (16:47)
[2025-03-24] MEDS ORDERED: ONDANSETRON ODT 4 MG TABLET TL PRN (16:47)
[2025-03-24] MEDS ORDERED: oxyCODONE 5 MG TABLET PO PRN (16:47)
[2025-03-24] MEDS: SODIUM CHLORIDE FLUSH 0.9% 10 ML SYRINGE IVP SCH (17:24)
[2025-03-24] MEDS: SODIUM CHLORIDE 0.9% 1,000 ML IV SCH (17:24)
[2025-03-24] MEDS: ALBUTEROL NEB 2.5 MG/3 ML INH PRN (19:09)
[2025-03-24] MEDS: BUDESONIDE 0.5 MG/2 ML NEB INH SCH (19:09)
[2025-03-24] MEDS: PREGABALIN 100 MG CAPSULE PO SCH (20:57)
[2025-03-24] MEDS: PREGABALIN 25 MG CAPSULE PO SCH (20:57)
[2025-03-24] MEDS: ZOLPIDEM 5 MG TABLET PO PRN (23:05)
[2025-03-25 04:40] LABS: HCT - HEMATOCRIT 32.9 % (37.0-47.0); HGB - HEMOGLOBIN 10.4 g/dL (12.0-16.0); MEAN PLATELET VOLUME 11.0 fL (7.9-10.8); NRBC ABSOLUTE COUNT (AUTO) 0.00 x10^3/uL; NUCLEATED RED BLOOD CELLS AUTO 0.0 /100WBC; PLT - PLATELET COUNT 214 10^3/uL (130-450); RED CELL DISTRIBUTION WIDTH 15.1 % (12.0-15.0)
[2025-03-25 05:24] LABS: BUN - BLOOD UREA NITROGEN 13.0 mg/dL (6-20); CARBON DIOXIDE - CO2 25.0 mmol/L (21-32); CREATININE 0.7 mg/dL (0.6-1.3); GFR - MDRD 82.0 (>89)
[2025-03-25] MEDS: LIOTHYRONINE 5 MCG TABLET PO SCH (06:30)
[2025-03-25] MEDS: PANTOPRAZOLE 40 MG TABLET PO SCH (06:30)
[2025-03-25] MEDS: LEVOTHYROXINE 75 MCG TABLET PO SCH (06:30)
[2025-03-25] MEDS ORDERED: PANTOPRAZOLE 40 MG TABLET PO SCH (07:00)
[2025-03-25] MEDS: SERTRALINE 50 MG TABLET PO SCH (08:40)
[2025-03-25] MEDS: ENOXAPARIN 40 MG/0.4 ML SYRINGE SUBQ SCH (08:40)
[2025-03-25] MEDS: ASPIRIN EC 81 MG TABLET PO SCH (08:40)
[2025-03-25] MEDS ORDERED: MIDODRINE 10 MG TABLET PO SCH (09:00)
--- NOTE | 2025-03-25 10:08 | Discharge Summary ---
Discharge Summary Admit Date: 03/24/25 Discharge Date: 03/25/25 Discharging Provider: Emma Riddle MD Primary Care Provider: Cuate Ferrari MD Code Status: Attempt Resuscitation DIAGNOSES Discharge Diagnoses with Status of Each Condition: 1. Involuntary movements, Present on admission. Resolved. 2. Lactic acidosis 3. Hypothyroidism 4. DO NOT RESUSCITATE HPI History of Present Illness: Patient was in the hospital less than 24 hours. Please see admission history and physical. HOSPITAL COURSE Hospital Course: Differential diagnosis for involuntary movement that was sudden onset included seizure, atypical stroke, sepsis because of lactic acidosis. The patient received IV fluids and hydroxyzine in the emergency room. By the time she left the ER to get to [facility] her involuntary movements were already abating. It was noted that the movements would start when her provider walked in the room but would du substantially when there is no provider. She was alert, oriented to person place and time. Never lost consciousness. Was aware of what was happening to her at all times. Very distressing. The only other thing she could add to the history was that of sitting at her desk for 4 hours before she got up to get in the car. Could somehow prolonged sitting have resulted in the involuntary movements? She also has a recent addition of midodrine because blood pressure was very low in the PCP office. But at times her blood pressures always been very high. Could she have autonomic dysfunction that is new in onset? The morning of discharge she returned to baseline. Anxious to go home. She was sitting up by herself. Feeding herself. No involuntary movements or tremors. Same chronic left leg weakness that she always has. She needs a new neurologist and I have given her a list of neurologist in the area. Temperature at discharge was 36.5. Heart rate 70. Respirations 18. O2 sat 98% on room air. 134/61 blood pressure. She is 4 foot inches tall, 80 kg. A ephraim, elderly female who looks older than her stated age. Oriented to person, place and time. No distress whatsoever. Supple neck. Clear lungs without crackles rhonchi wheezing. No use of accessory muscles. A regular rate and rhythm. An abdomen that is soft, obese, nontender. A left leg that has chronic weakness because of the entire spine being "steel and titanium". She struggles to get out of bed to stand but can do so. She says this is her baseline. This document was made in part using voice recognition software. While efforts are made to proofread this document, sound alike and grammatical errors may occur. ALLERGIES Allergies Allergy/AdvReac Type Severity Reaction Status Date / Time epinephrine Allergy Severe Respiratory Verified 03/24/25 11:20 nitrofurantoin (From Allergy Severe Respiratory Verified 03/24/25 11:20 Macrodantin) povidone-iodine (From Allergy Severe Rash Verified 03/24/25 11:20 Betadine) latex AdvReac Severe Rash Verified 03/24/25 11:20 Scales powder, Fennel, Allergy Severe Respiratory Uncoded 03/24/25 11:20 chamomile MEDICATIONS Ambulatory Orders Medication Instructions Recorded Confirmed aspirin 81 mg tablet,delayed 81 mg PO QDAY 05/01/24 release (Adult Low Dose Aspirin) celecoxib 200 mg capsule mg PO BID 05/01/24 03/13/25 cetirizine 10 mg tablet (Zyrtec) 10 mg PO QDAY PRN 03/1703/13/25 albuterol sulfate 90 mcg/actuation 2 puff inhalation Q 6H PRN 05/21/24 03/13/25 aerosol inhaler (Proventil HFA) shortness of breath or wheezing #8.5 grams zaleplon 10 mg capsule 10 mg PO ONCE PRN sleep #90 caps 05/21/24 03/13/25 fluticasone propionate 220 See Rx Instructions .Route 07/31/24 03/13/25 mcg/actuation HFA aerosol inhaler .COMPLEX #36 grams rabeprazole 20 mg tablet,delayed 20 mg PO BID #180 tab s 09/02/24 03/13/25 release sulfamethoxazole 800 0.5 tab PO QDAY #90 tabs 03/13/25 mg-trimethoprim 160 mg tablet cranberry 500 mg capsule 500 mg PO .Daily I have refl ux 09/27/24 03/13/25 lysine 1,000 mg tablet 1,000 mg PO .Daily Mouth Sor es 09/27/24 03/13/25 levothyroxine 75 mcg tablet 75 mcg PO QDAY #90 tabs 03/13/25 liothyronine 5 mcg tablet 10 mcg (2 x 5 mcg) PO QDAY # 180 11/02/24 03/13/25 tabs estradiol 0.01% (0.1 mg/gram) See Rx Instructions .Rou te 01/15/25 03/13/25 vaginal cream .COMPLEX #42.5 grams pregabalin 50 mg capsule 150 mg (3 x 50 mg) PO QDAY # 270 01/19/25 03/13/25 caps midodrine 10 mg tablet 10 mg PO .qdaily #30 tabs 03/13/25 sertraline 50 mg tablet 150 mg (3 x 50 mg) PO QDAY # 270 03/16/25 tabs PHYSICAL EXAM AT DISCHARGE Vital Signs: Vital Signs x48h Temp Pulse Pulse Resp BP Pulse Ox 03/25/25 09:04 70 18 03/25/25 08:30 36.5 C 61 18 134/61 H 98 03/25/25 04:49 36.7 C 61 20 130/60 97 LABS 03/25/25 04:05 03/25/25 04:05 Discharge Plan Discharge Patient Disposition: Home, Self Care Condition: Good Medically Cleared Date:: 03/25/25 Prescriptions: Continued zaleplon 10 mg capsule 10 mg PO ONCE PRN (Reason: sleep) Qty: 90 0RF albuterol sulfate [Proventil HFA] 90 mcg/actuation HFA aerosol inhaler 2 puff inhalation Q6H PRN (Reason: shortness of breath or wheezing) Qty: 8.5 2RF fluticasone propionate 220 mcg/actuation HFA aerosol inhaler See Rx Instructions .ROUTE .COMPLEX Qty: 36 3RF Dose Instruction: USE 2 INHALATIONS TWICE A DAY Rx Instructions: USE 2 INHALATIONS TWICE A DAY rabeprazole 20 mg tablet,delayed release (DR/EC) 20 mg PO BID Qty: 180 3RF sulfamethoxazole-trimethoprim 800-160 mg tablet 0.5 tab PO QDAY Qty: 90 1RF liothyronine 5 mcg tablet 10 mcg PO QDAY Qty: 180 3RF estradiol 0.01 % (0.1 mg/gram) cream See Rx Instructions .ROUTE .COMPLEX Qty: 42.5 2RF Rx Instructions: apply small amount around urethra; three days a week pregabalin 50 mg capsule 150 mg PO QDAY Qty: 270 1RF sertraline 50 mg tablet 150 mg PO QDAY Qty: 270 3RF celecoxib 200 mg capsule PO BID aspirin [Adult Low Dose Aspirin] 81 mg tablet,delayed release (DR/EC) 81 mg PO QDAY cetirizine [Zyrtec] 10 mg tablet 10 mg PO QDAY PRN cranberry 500 mg capsule 500 mg PO .Daily lysine 1,000 mg tablet 1,000 mg PO .Daily levothyroxine 75 mcg tablet 75 mcg PO QDAY Qty: 90 3RF midodrine 10 mg tablet 10 mg PO .qdaily Qty: 30 3RF Rx Instructions: do not give last dose of day after 6PM or within 4 hrs of bedtime Diet: Regular Health Concerns: You have a very extensive past medical history centering around multiple back surgeries and chronic pain. You have a chronic left leg droop. In the last few months you have had episodes of low blood pressure for which midodrine was started. But you also have high blood pressure. You also have a remote history of childhood epilepsy but you have not had a seizure in over 20 years. You take multiple medications and these medications do have interactions. Some of the interactions can be something called serotonin syndrome. That is manifested as confusion, fever, involuntary movements. You came to the emergency room because you had gotten into your car to go to [facility]. While you were in the car you develop shortness of breath and you could not get out of the car once you got to [facility]. You also began having involuntary spasms of your extremities. Your doctor happened to be one of the people at [facility] and evaluated you and felt that your blood pressure was too high and sent you to the emergency room. In the emergency room the only thing we could find from a lab perspective was elevated lactic acid. That happens because you had the involuntary movements with cramping. But you did not have a fever, you did not have a white cell count. Your urinalysis did not necessarily have a urinary tract infection. Our treatment consisted of hydroxyzine, intravenous fluids for hydration. A CT of the head was done to make sure you were not having a stroke and the CT was negative. The blood supply to your head was normal. By the time you left the emergency room and came into the hospital, you were already improving. You no longer had involuntary movements. Overnight, your blood pressure has been stable. You have had no fever. You feel like you are back to baseline and would like to go home. I am not changing any of your medications. Please take them the way you were doing before. Instructions for discharge: 1. Please see your primary care provider, Dr. Ferrari, in follow-up 2. Unfortunately your neurologist, Mukund Rudd, has left the area. You no need to find a new neurologist. Dr. Mac House is a neurologist at the same clinic that Dr. Macario worked out. [facility]. You could start with him. [facility] has a large neurology presence. But those neurologists are in [place], centering around [facility]. There are dozens of neurologist in that clinic. They are located on [address] in [place]. They also have [facility]. They are located on in [place]. Their phone number is [phone]. [facility] ([facility] the [facility] has a neurology clinic in [place]. The office number is [phone]. Those doctors names are: MD Vandana Dominguez MD Michael Chun, MD Katie McWilliams, ARNP Lisa Lester, MD Nicola Carlisle, MD There are more on the list and you might have to see whichever 1 sees you first. formerly [facility]rology at [facility] is on [facility]. In [place]. Their number is [phone]. Print Language: Ukrainian Patient Instructions: Functional Movement Disorders Follow-up Care: Cuate Ferrari MD [Primary Care Provider, Family Practice] Vitals documented within 30 minutes of discharge?: Yes
--- NOTE | 2025-03-25 10:19 | PHARMACY PROGRESS NOTE ---
Best Possible Medication History Admit Date and Time: 03/24/25 1609 Home Medications Medication Instructions Recorded Confirmed Type aspirin 81 mg tablet,delayed 81 mg PO DAILY 05/01/24 0 03/25/25 History release (Adult Low Dose Aspirin) celecoxib 200 mg capsule 200 mg PO BID 05/01/2403/25 History cetirizine 10 mg tablet (Zyrtec) 10 mg PO DAILY 03/25/25 History albuterol sulfate 90 mcg/actuation 2 puff inhalation Q 6H PRN 05/21/24 03/25/25 Rx aerosol inhaler (Proventil HFA) shortness of breath or wheezing #8.5 grams zaleplon 10 mg capsule 10 mg PO ONCE PRN sleep #90 caps 05/21/24 03/25/25 Rx fluticasone propionate 220 See Rx Instructions .Route 07/31/24 03/25/25 Rx mcg/actuation HFA aerosol inhaler .COMPLEX #36 grams rabeprazole 20 mg tablet,delayed 20 mg PO BID #180 tab s 09/02/24 03/25/25 Rx release cranberry 500 mg capsule 500 mg PO DAILY I have reflu x 09/27/24 03/25/25 History lysine 1,000 mg tablet 1,000 mg PO DAILY Mouth Sore s 09/27/24 03/25/25 History estradiol 0.01% (0.1 mg/gram) 1 appful vaginal MOWEFR 03/25/25 03/25/25 History vaginal cream levothyroxine 75 mcg tablet 75 mcg PO QDAC 03/25/25 History liothyronine 5 mcg tablet 10 mcg PO QDAC 03/25/2508/18 History pregabalin 50 mg capsule 150 mg PO QPM 03/25/2503/25 History sertraline 50 mg tablet 150 mg PO DAILY 03/25/2508/18 History sulfamethoxazole 800 0.5 tab PO DAILY 03/25/25 History mg-trimethoprim 160 mg tablet Processed by: Pharmacy Medications reviewed in ED?: No Medication History completed: Yes Patient Interview: Completed Secondary Source(s): Physician records, Pharmacy records and Insurance records [facility] Statement: As the person ultimately responsible for medication therapy, providers are able to order a medication from an existing home medication list in [facility] via the "Reconcile Routine" prior to Confirmation of that medication by operations support professionals. Such practice is discouraged except when the physician, in their clinical judgment, deems that a medical need exists for a medication without regard to previous use.
[2025-03-25 12:51] VITALS: BP 116/55; TEMP 98.1; O2SAT 97
== END 2025-03-25 12:38 | disposition home or self-care (01) ==
LOC: MS3 10:57 → ED 10:57 → MS3 16:49
PROVIDERS: ADMIT Specialist; ATTEND Specialist
DX: E87.20 Acidosis, unspecified; Z79.899 Other long term (current) drug therapy; Z11.52 Encounter for screening for COVID-19; I25.10 Atherosclerotic heart disease of native coronary artery without angina pectoris; Z79.890 Hormone replacement therapy; H91.93 Unspecified hearing loss, bilateral; Z96.651 Presence of right artificial knee joint; M62.838 Other muscle spasm; G40.909 Epilepsy, unspecified, not intractable, without status epilepticus; R26.2 Difficulty in walking, not elsewhere classified; Z66 Do not resuscitate; Z79.82 Long term (current) use of aspirin; J45.909 Unspecified asthma, uncomplicated; M21.372 Foot drop, left foot; F41.9 Anxiety disorder, unspecified; R41.82 Altered mental status, unspecified; R47.01 Aphasia; R06.02 Shortness of breath; I95.9 Hypotension, unspecified; E03.9 Hypothyroidism, unspecified